=== PATIENT | male | born 1955 | race Caucasian/White ===

== ENCOUNTER 2020-12-05 18:18 | Emergency (ER) | payer OTHER ==
[~2020-12-05] VITALS: Ht 165.1 cm; Wt 93.4 kg
--- NOTE | 2020-12-05 19:10 | NUR ---
PT TO ROOM FROM LOBBY
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
--- NOTE | 2020-12-05 20:01 | NUR ---
PT SITTING UPRIGHT ON CHAIR IN ROOM, SLING REMAINS IN PLACE. ICE APPLIED TO RIGHT SHOULDER/ARM. PT DENIES ANY ADDITIONAL NEEDS AT THIS TIME. CALL LIGHT AND PERSONAL BELONGINGS WITHIN REACH. SPOUSE AT BEDSIDE.
[2020-12-05 20:05] VITALS: BP 159/72
--- NOTE | 2020-12-05 20:16 | NUR ---
ERP AT BEDSIDE
[2020-12-05] MEDS ORDERED: OXYcodone/APAP 10/325MG TABLET ONE (20:24)
[2020-12-05] MEDS ORDERED: OXYcodone/APAP 10/325MG TABLET PO ONE (20:30)
--- NOTE | 2020-12-05 20:40 | NUR ---
Patient given discharge instructions and they have confirmed that they understand the instructions. Patient ambulatory with steady gait.
== END 2020-12-05 20:41 | disposition home or self-care (01) ==
LOC: ED 18:48
DX: S42.201A Unspecified fracture of upper end of right humerus, initial encounter for closed fracture (principal); M25.511 Pain in right shoulder; W01.0XXA Fall on same level from slipping, tripping and stumbling without subsequent striking against object, initial encounter; Y93.89 Activity, other specified; Y92.89 Other specified places as the place of occurrence of the external cause; Y99.8 Other external cause status
CPT/HCPCS: 99283